=== PATIENT | female | born 1940 | race Caucasian/White ===

== ENCOUNTER → 2021-11-17 09:52 | Outpatient (BNVA) | payer MEDICARE, SELFPAY | PROVIDERS: PCP Internal Medicine; Visit Provider Psychiatry & Neurology Neurology | DX: F32.A Depression, unspecified (principal); F09 Unspecified mental disorder due to known physiological condition; H91.90 Unspecified hearing loss, unspecified ear | CPT/HCPCS: 99202 ==

== ENCOUNTER → 2022-02-07 11:24 | Outpatient (BNVA) | payer MEDICARE, SELFPAY | PROVIDERS: PCP Internal Medicine; Visit Provider Psychiatry & Neurology Neurology | DX: F09 Unspecified mental disorder due to known physiological condition (principal); F32.A Depression, unspecified; H91.90 Unspecified hearing loss, unspecified ear | CPT/HCPCS: 99212 ==

== ENCOUNTER → 2022-06-13 10:00 | Outpatient (BNVA) | payer MEDICARE, SELFPAY | PROVIDERS: PCP Internal Medicine; Visit Provider Psychiatry & Neurology Neurology | DX: G30.9 Alzheimer's disease, unspecified (principal); F02.80 Dementia in other diseases classified elsewhere, unspecified severity, without behavioral disturbance, psychotic disturbance, mood disturbance, and anxiety; H91.90 Unspecified hearing loss, unspecified ear; F32.A Depression, unspecified; Z79.899 Other long term (current) drug therapy | CPT/HCPCS: 99212 ==

== ENCOUNTER 2022-12-12 08:52 | Outpatient (AMB) | payer MEDICARE, SELFPAY ==
[2022-12-12 09:02] VITALS: BP 132/82; BMI 19.7
--- NOTE | 2022-12-12 09:02 | MHC.OFFVIS ---
Intake Vital Signs 12/12/22 09:02 Height 5 ft Weight 101 lb BMI 19.7 BP 132/82 Blood Pressure Location Rt brachial Position Sitting Intake Visit Reasons: 6mfollow up parkinson-lvm Intake Note: Patient presents for 6 month follow up Allergies No Known Allergies Allergy (Verified 12/12/22 09:04) Medication List - Last Reconciled 12/12/22 by Adela Zheng MD albuterol sulfate 90 mcg/actuation 2 inhalations inhalation Q6H PRN atenolol 25 mg PO DAILY donepezil 10 mg PO DAILY fluticasone propionate 44 mcg/actuation (Flovent HFA) 1 puff inhalation BID ipratropium-albuterol 20-100 mcg/actuation (Combivent Respimat) 1 puff inhalation QID memantine 10 mg PO BID 30 days sertraline (Zoloft) 25 mg PO DAILY HPI HPI Comments History of Present Illness Details 82y/o female comes for follow up of her cognitive disorder. Her neuropsych testing was c/w moderate dementia.she is doing OK namenda 10mg bid she is also on donepezil He rmemeory has worsened SHe has ENGINE TESTER 2 times a week 3hrs each time. she is wearing hearing aids most of the time. She is drinking 1 L of coke or less . she has urinary urgency and incontinence. Patient refuses to wear depends. SHe is accompanied by her daughter who helps with history. According to her daughter the cognitive issues started about 1 year ago. Leaves stove on, water running, car running, forgetting to pay bills. Her daughter lives with her. In the past few months its worse and she forgot how to get to her doctors office. she still drives. she drives to play cards, grocery shopping. no car accidents. she worked in retail-retired 8 years ago . She reports depression. No anxiety. She has chronic sleep issues. it is better now.Her mother had Alzheimer dementia.2 years ago she had concussion . [facility] Medical History Cholelithiasis Hearing loss Kidney injury Small bowel obstruction Surgical History Hx of cataract surgery Hx of hysterectomy Family History Father Colon cancer Alzheimer disease Mother No problems noted. Brother Mesothelioma Social History Household Members: Family Household Members Other:: daughter Alcohol intake: current Alcohol intake frequency: a few times a week Patient Tobacco Use Status: Former Tobacco user Physical Exam Vital Signs: Last Vital Signs BP 132/82 12/12/22 09:02 BMI result Body Mass Index 19.7 Const Orientation/consciousness: patient oriented x3 Neuro Other: MMSE- Date- 07/01 Place-09/28 Registration- 07/27 Spelling backwards- 07/29 recall- 05/29 3 step commands- 06/29 intersecting pentagons- missed the second writing- normal reading normal CLOCK- missed 1 number, wrong time MMSE General: patient oriented x3, tone normal, moves all extremities and no focal motor deficits Cranial nerves: Yes CN's II-XII intact bilaterally and Yes Normal facial strength present Gait exam (Neuro): Other gait observations present (mild off balance) Motor exam (neuro): 5/5 motor strength present throughout Deep tendon reflexes (DTR's): Right triceps reflex intensity grade: 2+ and Left triceps reflex intensity grade: 2+ Coordination: [id number] test normal Assessment & Plan Assessment & Plan (1) Alzheimer's dementia: Code(s): G30.9 - Alzheimer's disease, unspecified; F02.80 - Dementia in other diseases classified elsewhere, unspecified severity, without behavioral disturbance, psychotic disturbance, mood disturbance, and anxiety (2) Depression: Code(s): F32.A - Depression, unspecified Plan Neuropsych evaluation reviewed, MRI brain reviewed Aricept 10mg qd namenda 10mg bid Discussed about decreasing soda intake and increasing fluids suggested bathroom breaks. zoloft 25mg qd for appetite Medications: New sertraline (Zoloft) 25 mg PO DAILY 30 tabs 6RF Coding Level of Care Code Est Pt Level 4 (78639) Diagnoses Alzheimer's dementia G30.9; F02.80 Depression F32.A
== END 2022-12-12 09:26 | disposition home or self-care (01) ==
PROVIDERS: Visit Provider Psychiatry & Neurology Neurology
DX: G30.9 Alzheimer's disease, unspecified (principal); F02.80 Dementia in other diseases classified elsewhere, unspecified severity, without behavioral disturbance, psychotic disturbance, mood disturbance, and anxiety; F32.A Depression, unspecified
CPT/HCPCS: 99214

== ENCOUNTER → 2022-12-12 08:52 | Outpatient (BNVA) | payer MEDICARE, SELFPAY | PROVIDERS: Visit Provider Psychiatry & Neurology Neurology | DX: G30.9 Alzheimer's disease, unspecified (principal); F02.80 Dementia in other diseases classified elsewhere, unspecified severity, without behavioral disturbance, psychotic disturbance, mood disturbance, and anxiety; F32.A Depression, unspecified | CPT/HCPCS: 99212 ==

== ENCOUNTER 2023-06-18 10:23 | Outpatient (AMB) | payer MEDICARE, SELFPAY ==
[2023-06-18 10:55] VITALS: BP 102/68; PULSE 79; RESP 17; O2SAT 96; BMI 19.4
--- NOTE | 2023-06-18 10:55 | MHC.OFFVIS ---
Intake Vital Signs 06/18/23 10:55 Height 5 ft Weight 99 lb 8 oz BMI 19.4 BP 102/68 Blood Pressure Location Lt brachial Position Sitting Respiration 17 Pulse 79 Pulse Source Pulse Oximeter Pulse Oximetry (%) 96 Oxygen Delivery Method Room Air Intake Visit Reasons: 6m f/u Parkinson - LVM Intake Note: Pt presents to the office for a 6 month follow up for Alzheimer's and dementia. Predictive Maintenance Specialist Required: No Allergies No Known Allergies Allergy (Verified 06/18/23 10:55) Medication List - Last Reconciled 06/18/23 by Adela Zheng MD albuterol sulfate 90 mcg/actuation 2 inhalations inhalation Q6H PRN atenolol 25 mg PO DAILY donepezil 10 mg PO DAILY fluticasone propionate 44 mcg/actuation (Flovent HFA) 1 puff inhalation BID ipratropium-albuterol 20-100 mcg/actuation (Combivent Respimat) 1 puff inhalation QID memantine 10 mg PO BID 30 days sertraline (Zoloft) 25 mg PO DAILY HPI HPI Comments History of Present Illness Details 82y/o female comes for follow up of her cognitive disorder. Her neuropsych testing was c/w moderate dementia.she is doing OK namenda 10mg bid she is also on donepezil Her memeory has worsened . she repeats often she plays cards and has won a few times SHe has INSPECTOR CASING 2 times a week 3hrs each time. she is wearing hearing aids most of the time. She is drinking 1 L of coke or less . she has urinary urgency and incontinence. Patient refuses to wear depends. SHe is accompanied by her daughter who helps with history. According to her daughter the cognitive issues started about 18mths year ago. Leaves stove on, water running, car running, forgetting to pay bills. Her daughter lives with her. In the past few months its worse and she forgot how to get to her doctors office. she still drives. she drives to play cards, grocery shopping. no car accidents. she worked in retail-retired 8 years ago . She reports depression. No anxiety. She has chronic sleep issues. it is better now.Her mother had Alzheimer dementia.2 years ago she had concussion . [facility] Medical History Kidney injury Small bowel obstruction Cholelithiasis Hearing loss Surgical History Hx of cataract surgery Hx of hysterectomy Family History Father Colon cancer Alzheimer disease Mother No problems noted. Brother Mesothelioma Social History Household Members: Family Household Members Other:: daughter Alcohol intake: current Alcohol intake frequency: a few times a week Patient Tobacco Use Status: Former Tobacco user Physical Exam Vital Signs: Last Vital Signs Pulse 79 06/18/23 10:55 Resp 17 06/18/23 10:55 BP 102/68 06/18/23 10:55 Pulse Ox 96 06/18/23 10:55 Oxygen Delivery Method Room Air 06/18/23 10:55 BMI result Body Mass Index 19.4 Const Orientation/consciousness: patient oriented x3 Neuro Other: MMSE- Date- 07/29 Place-09/28 Registration- 07/27 Spelling backwards- 09/28 recall- 07/27 3 step commands- 05/29 intersecting pentagons- missed the second writing- normal reading normal CLOCK- missed 1 number, wrong time MMSE General: patient oriented x3, tone normal, moves all extremities and no focal motor deficits Cranial nerves: Yes CN's II-XII intact bilaterally and Yes Normal facial strength present Gait exam (Neuro): Other gait observations present (mild off balance) Motor exam (neuro): 5/5 motor strength present throughout Deep tendon reflexes (DTR's): Right triceps reflex intensity grade: 2+ and Left triceps reflex intensity grade: 2+ Coordination: [id number] test normal Assessment & Plan Assessment & Plan (1) Alzheimer's dementia: Code(s): G30.9 - Alzheimer's disease, unspecified; F02.80 - Dementia in other diseases classified elsewhere, unspecified severity, without behavioral disturbance, psychotic disturbance, mood disturbance, and anxiety (2) Depression: Code(s): F32.A - Depression, unspecified Plan Aricept 10mg qd namenda 10mg bid Discussed about decreasing soda intake and increasing fluids suggested bathroom breaks continue zoloft 25mg qd for appetite Medications: Changed From memantine 10 mg PO BID 30 days 60 tabs 6RF To memantine 10 mg PO BID 180 tabs 6RF 90 days Refilled donepezil 10 mg PO DAILY 90 tabs 6RF sertraline (Zoloft) 25 mg PO DAILY 90 tabs 6RF Coding Level of Care Code Est Pt Level 4 (22082) Diagnoses Alzheimer's dementia G30.9; F02.80 Depression F32.A
== END 2023-06-18 11:15 | disposition home or self-care (01) ==
PROVIDERS: PCP Internal Medicine; Visit Provider Psychiatry & Neurology Neurology
DX: G30.9 Alzheimer's disease, unspecified (principal); F02.80 Dementia in other diseases classified elsewhere, unspecified severity, without behavioral disturbance, psychotic disturbance, mood disturbance, and anxiety; F32.A Depression, unspecified
CPT/HCPCS: 99214

== ENCOUNTER → 2023-06-18 10:23 | Outpatient (BNVA) | payer MEDICARE, SELFPAY | PROVIDERS: PCP Internal Medicine; Visit Provider Psychiatry & Neurology Neurology | DX: G30.9 Alzheimer's disease, unspecified (principal); F02.80 Dementia in other diseases classified elsewhere, unspecified severity, without behavioral disturbance, psychotic disturbance, mood disturbance, and anxiety; F32.A Depression, unspecified; Z79.899 Other long term (current) drug therapy | CPT/HCPCS: 99212 ==

== ENCOUNTER 2023-12-18 08:42 | Outpatient (AMB) | payer MEDICARE, SELFPAY ==
[2023-12-18 08:44] VITALS: BP 114/70; BMI 19.9
--- NOTE | 2023-12-18 08:44 | A.OFFVIS_ITS ---
Vital Signs 12/18/23 08:44 Height 5 ft Weight 102 lb BMI 19.9 BP 114/70 Blood Pressure Location Rt brachial Position Sitting Intake Visit Reasons: 6 mo f/u - Confirmed Intake Note: Patient presents for 6 month follow up Allergies No Known Allergies Allergy (Verified 12/18/23 08:46) HPI Comments Details: 83y/o female comes for follow up of her cognitive disorder. Her neuropsych t esting was c/w moderate dementia.she is doing OK namenda 10mg bid she is also on donepezil.she has been the same since last visit. she plays cards and has won a few times SHe has DIRECTOR OF PROVIDER RELATIONS 2 times a week 3hrs each time. she is wearing hearing aids most of the time. She is drinking 1 L of coke or less . she has urinary urgency and incontinence. Patient refuses to wear depends. SHe is accompanied by her daughter who helps with history. According to her daughter the cognitive issues started about 18mths year ago. Leaves stove on, water running, car running, forgetting to pay bills. Her daughter lives with her. In the past few months its worse and she forgot how to get to her doctors office. she still drives. she drives to play cards, grocery shopping. no car accidents. she worked in retail-retired 8 years ago . She reports depression. No anxiety. She has chronic sleep issues. it is better now.Her mother had Alzheimer dementia.2 years ago she had concussion . [facility] Medical History Kidney injury Small bowel obstruction Cholelithiasis Hearing loss Surgical History Hx of cataract surgery Hx of hysterectomy Family History Father Colon cancer Alzheimer disease Mother No problems noted. Brother Mesothelioma Social History Household Members: Family Household Members Other:: daughter Alcohol intake: current Alcohol intake frequency: a few times a week Patient Tobacco Use Status: Former Tobacco user Physical Exam Vital Signs: Last Vital Signs BP 114/70 12/18/23 08:44 BMI result Body Mass Index 19.9 Const Orientation/consciousness: patient oriented x3 Neuro Other: MMSE- Date- 3/5 Place-09/28 Registration- 07/27 Spelling backwards- 09/28 recall- 07/27 3 step commands- 05/29 intersecting pentagons- missed the second writing- normal reading normal CLOCK- missed 1 number, wrong time MMSE General: patient oriented x3, tone normal, moves all extremities and no focal motor deficits Cranial nerves: Yes CN's II-XII intact bilaterally and Yes Normal facial strength present Gait exam (Neuro): Other gait observations present (mild off balance) Motor exam (neuro): 09/28 motor strength present throughout Deep tendon reflexes (DTR's): Right triceps reflex intensity grade: 2+ and Left triceps reflex intensity grade: 2+ Coordination: [id number] test normal Assessment & Plan Assessment & Plan (1) Alzheimer's dementia: Code(s): G30.9 - Alzheimer's disease, unspecified; F02.80 - Dementia in other diseases classified elsewhere, unspecified severity, without behavioral disturbance, psychotic disturbance, mood disturbance, and anxiety Category: Medical (2) Depression: Code(s): F32.A - Depression, unspecified Category: Medical Plan Aricept 10mg qd namenda 10mg bid Discussed about decreasing soda intake and increasing fluids- discussed about increasing protien suggested bathroom breaks - she wears depends now continue zoloft 25mg qd for appetite Coding Level of Care Code Est Pt Level 4 (87941) Diagnoses Alzheimer's dementia G30.9; F02.80 Depression F32.A
== END 2023-12-18 09:22 | disposition home or self-care (01) ==
PROVIDERS: PCP Internal Medicine; Visit Provider Psychiatry & Neurology Neurology
DX: G30.9 Alzheimer's disease, unspecified (principal); F02.80 Dementia in other diseases classified elsewhere, unspecified severity, without behavioral disturbance, psychotic disturbance, mood disturbance, and anxiety; F32.A Depression, unspecified
CPT/HCPCS: 99214

== ENCOUNTER → 2023-12-18 08:42 | Outpatient (BNVA) | payer MEDICARE, SELFPAY | PROVIDERS: PCP Internal Medicine; Visit Provider Psychiatry & Neurology Neurology | DX: G30.9 Alzheimer's disease, unspecified (principal); F32.A Depression, unspecified; F02.80 Dementia in other diseases classified elsewhere, unspecified severity, without behavioral disturbance, psychotic disturbance, mood disturbance, and anxiety | CPT/HCPCS: 99212 ==

== ENCOUNTER 2024-12-16 15:18 | Outpatient (AMB) | payer MEDICARE, SELFPAY ==
[2024-12-16 15:12] VITALS: BP 130/82; PULSE 74; O2SAT 97; BMI 22.5
--- NOTE | 2024-12-16 15:12 | MHC.OFFVIS ---
Vital Signs 12/16/24 15:12 Height 5 ft Weight 115 lb BMI 22.5 BP 130/82 Blood Pressure Location Rt brachial Position Sitting Pulse 74 Pulse Source Pulse Oximeter Pulse Oximetry (%) 97 Oxygen Delivery Method Room Air Intake Visit Reasons: Follow up It Service Manager Required: No Accompanied by: Daughter Allergies No Known Allergies Allergy (Verified 12/16/24 15:33) Medication List - Last Reconciled 12/16/24 by Adela Zheng MD atenolol 25 mg PO DAILY fluticasone propionate 44 mcg/actuation (Flovent HFA) 1 puff inhalation BID memantine 10 mg PO BID 90 days sertraline (Zoloft) 25 mg PO DAILY HPI Comments Details: 84y/o female comes for follow up of her cognitive disorder. Her neuropsych testing was c/w moderate dementia.she is doing OK namenda 10mg bid she is also on Donepezil.she has been the same since last visit. she moved to [facility] - she is doing better- walking more, socially better, eating better.she is exercising and walking everyday.she sleeps better now. History from last visit-she plays cards and has won a few times SHe has EXPORT TRAFFIC DEPARTMENT MANAGER 2 times a week 3hrs each time. she is wearing hearing aids most of the time. She is drinking 1 L of coke or less . she has urinary urgency and incontinence. Patient refuses to wear depends. SHe is accompanied by her daughter who helps with history. According to her daughter the cognitive issues started about 18mths year ago. Leaves stove on, water running, car running, forgetting to pay bills. Her daughter lives with her. In the past few months its worse and she forgot how to get to her doctors office. she still drives. she drives to play cards, grocery shopping. no car accidents. she worked in retail-retired 8 years ago . She reports depression. No anxiety. She has chronic sleep issues. it is better now.Her mother had Alzheimer dementia. . [facility] Medical History Kidney injury Small bowel obstruction Cholelithiasis Hearing loss Surgical History Hx of cataract surgery Hx of hysterectomy Family History Father Colon cancer Alzheimer disease Mother No problems noted. Brother Mesothelioma Social History Household Members: Family Household Members Other:: daughter Alcohol intake: current Alcohol intake frequency: a few times a week Patient Tobacco Use Status: Former Tobacco user Physical Exam Vital Signs: Last Vital Signs Pulse 74 12/16/24 15:12 BP 130/82 12/16/24 15:12 Pulse Ox 97 12/16/24 15:12 Oxygen Delivery Method Room Air 12/16/24 15:12 BMI result Body Mass Index 22.5 Const Orientation/consciousness: patient oriented x3 Neuro General: patient oriented x3, tone normal, moves all extremities and no focal motor deficits Cranial nerves: Yes CN's II-XII intact bilaterally and Yes Normal facial strength present Gait exam (Neuro): Other gait observations present (mild off balance) Motor exam (neuro): 5/5 motor strength present throughout Coordination: [id number] test normal Orientation What is the (year) (season) (date) (day) (month)?: year, season, date, day and month Where are we (state) (county) (town or city) (hospital) (floor)?: state, county, town or city, hospital/clinic and floor Registration Name of 3 unrelated objects clearly and slowly, then ask patient to repeat all 3 of them. (1st repeat determines score. Make sure they can repeat all three): object 1, object 2 and object 3 Attention & Calculation (CHOOSE ONE) Spell WORLD backwards (DLROW): 5 letters Recall Ask patient to repeat the 3 items from question #3.: object 1 Language Show patient a wristwatch & ask what it is. Repeat for pencil.: watch and pencil Ask the patient to repeat the phrase 'No ifs, ands, or buts' after you.: correct Ask the patient to 'take a piece of paper with their right hand' 'fold paper in half' 'place paper on floor': take paper in right hand, fold paper in half and place paper on floor Print the sentence 'CLOSE YOUR EYES' on a piece. If patient actually closes eyes then score.: followed written direction Give patient a blank piece of paper & ask to write a sentence. Score if it contains a noun & verb.: sentence contains subject and verb Score Score: 27 Assessment & Plan Assessment & Plan (1) Alzheimer's dementia: Code(s): G30.9 - Alzheimer's disease, unspecified; F02.80 - Dementia in other diseases classified elsewhere, unspecified severity, without behavioral disturbance, psychotic disturbance, mood disturbance, and anxiety Category: Medical Qualifiers: Alzheimer's disease onset: late onset Dementia severity: moderate Dementia behavioral or psychological symptom: without behavioral, psychotic, or mood disturbance or anxiety Qualified Code(s): G30.1 - Alzheimer's disease with late onset; F02.B0 - Dementia in other diseases classified elsewhere, moderate, without behavioral disturbance, psychotic disturbance, mood disturbance, and anxiety Plan namenda 10mg bid Discussed about decreasing soda intake and increasing fluids- discussed about increasing protien suggested bathroom breaks - she wears depends now continue zoloft 25mg qd for appetite Coding Level of Care Code Est Pt Level 4 (72309) Diagnoses Moderate late onset Alzheimer's dementia without behavioral disturbance, psychotic disturbance, mood disturbance, or anxiety G30.1; F02.B0 Alzheimer's disease onset: late onset Dementia severity: moderate Dementia behavioral or psychological symptom: without behavioral, psychotic, or mood disturbance or anxiety
--- OUTSIDE RECORDS SUMMARY | 2024-12-16 15:42 | XMS_ITS | Clinical Summary ---
Author Organization [facility] Address [address] [place] [address] Care Team Providers Care Polishing Machine Tender Name Role Phone Kary Thibodeaux MD Primary Care Prov ider Allergies No known active allergies Medications memantine (NAMENDA) 10 mg tablet Take 1 Tablet by mouth 2 Times Daily. 2 Active sertraline (ZOLOFT) 25 mg tablet Take 1 Tablet by mouth daily. 3 Active Lacto 41-B.animalis,bif id-FOS (Ultimate Probiotic-10) 111 mg (25 billion cell) capsule Take by mouth. Active multivit-min/iron /folic acid/K (ADULTS MULTIVITAMIN ORAL) Take by mouth. Active atenoloL (TENORMIN) 25 mg tablet TAKE 1 TABLET BY MOUTH EVERY DAY 90 tablet 1 5 Active loperamide (IMODIUM) 2 mg capsule TAKE 1 CAPSULE BY MOUTH EVERY 3 HOURS NEEDED FOR LOOSE STOOL 5 Active cetirizine (ZyrTEC) 10 mg tablet TAKE 1 TABLET BY MOUTH EVERY DAY 90 tablet Active Active Problems Problem Noted Date Diagnosed Date Acute kidney injury ([facility] V24) 04/27/2024 Diarrhea 04/27/2024 Hard of hearing 04/27/2024 Sepsis ([facility] V24, [facility] V28) 04/27/2024 Moderate dementia without be havioral disturbance, psychotic disturbance, mood disturbance, or anxiety ([facility] V24, [facility] V28) 01/14/2023 Assessment & Plan (09/29/2024 5:24 PM EDT): Weight loss, unintentional 01/14/2023 Pulmonary emphysema ([facility] V24, [facility] V28) 0 12/03/2022 COVID-19 virus infection 02/09/2022 Overview (04/27/2024): Jan 2022 Cholelithiasis 06/08/2020 Osteoporosis 01/08/2013 Overview (04/27/2024): Bone density 12/2012. PTH borderline elevated. Pt declines osteoporosis medication Increased urinary frequency 11/02/2010 Urge incontinence of urine 11/02/2010 Hypercholesterolemia 09/08/2009 Hypertension 09/08/2009 Assessment & Plan (09/29/2024 5:24 PM EDT): Hearing loss, sensorineural 11/25/2008 Encounters Date Type Department Care Team Description 11/11/2024 Billing Patient Not Present [address] [phone] Radha Berg MA Urinary tract infection without hematuria, site unspecified (Primary Dx); Unspecified Escherichia coli (E. coli) as the cause of diseases classified elsewhere; Bacteremia; Other specified bacterial agents as the cause of diseases classified elsewhere; Contusion of scalp, subsequent encounter; Dementia without behavioral disturbance, psychotic disturbance, mood disturbance, or anxiety, unspecified dementia severity, unspecified dementia type ([facility] V24, [facility] V28) 11/05/2024 Telephone Adult [facility] [address] [place] [phone] Kary Bojorquez MD Forms/questionnaires ([facility] 10/23/2024-12/21/2024/) 10/30/2024 1:30 PM EDT Office Visit [address] [phone] Kary Bojorquez MD Primary hypertension (Primary Dx); 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 Completed and Dr. Reyna signed. Please review, thank so much.) 10/26/[address] [phone] Kary Bojorquez MD Vaginitis/Bacterial Vaginosis 10/21/[address] [phone] Kary Bojorquez MD Mychart appt (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, psychotic disturbance, mood disturbance, or anxiety, unspecified timing of dementia onset ([facility] V24, [facility] V28) 09/25/2024 Telephone Adult [address] [phone] Kary Bojorquez MD Medication Problem from Last 3 Months Immunizations Name Administration Dates Next Due Influenza Quadravalent, 0.5m l (Fluzone High-dose) 65yo and older 02/02/2021 Influenza trivalent, 0.5mL ( Fluad) 65yo and older 02/26/2024,03/12/2022,04/25/2020,2018,03/10/2017 Influenza trivalent, 0.5mL ( Fluzone High-dose) 65yo and older 03/12/2022,04/25/2020,02/10/2019,2017,03/10/2017 Influenza trivalent, 0.5mL, preservative free (Fluarix; FluLaval; Fluzone) ages 6mo and older (Afluria) 3 years and older 05/22/2016 Influenza trivalent, with preservative (Fluzone; Afluria) 6mo and older 05/22/2016 Pneumococcal conjugate 13 va lent (Prevnar 13, PCV13) 2mo and older 08/17/2014 RSV, bivalent, protein subun it RSVpreF, 0.5mL, Preservative Free (Arexvy) 60yo and older 03/30/2024 Td Tetanus diptheria (Tdvax) 7yo and older 05/27/2006 Tdap Tetanus diptheria acell ular pertussis (Boostrix; Adacel) 7yo and older 10/19/2014 Surgical History Surgery Date Site/Laterality Comments HYSTERECTOMY 1970s PROCEDURE: HISTORICAL VAGINAL HYSTERECTOMY W/O BSO; COMMENT: a wedge of an ovary remains TONSILLECTOMY PROCEDURE: HISTORICAL TONSILLECTOMY OTHER SURGICAL HISTORY age 29 PROCEDURE: AR VAG HYST 250 GM/< W/RMVL TUBE&/OVARY; COMMENT: TVH LSO for menorrhagia COLONOSCOPY 11/30/13 PROCEDURE: HISTORICAL COLONOSCOPY; COMMENT: tics; would not repeat Medical History Medical History Date Comments Sepsis (CMS/HCC V24, CMS/HCC V28) DX:Sepsis (HCC) Diarrhea DX:Diarrhea Acute kidney injury (CMS/HCC V24) DX:Acute kidney injury (HCC) Hard of hearing DX:Hard of heari ng Family History Medical History Relation Name Comments Other cancer Father pancreas Breast cancer Other p cousins x2 Relation Name Status Comments Brother Alive Father pancreatic canc er Maternal Grandfather Maternal Grandmother Mother alzyeimiemedavid's Other p cousins x2 Paternal Grandfather Paternal Grandmother Sister Alive Social History Tobacco Use Types Packs/Day Years Used Date Smoking Tobacco: Former Cigarettes Q uit: 05/27/1993 Smokeless Tobacco: Never Tobacco Cessation:Counseling Given: Not Answered Alcohol Use Standard Drinks/Week Comments Yes 0 (1 standard drink = 0.6 oz pur e alcohol) Housing Instability Answer Date Recorde d Are you worried that in the next 2 months you may not have stable housing? No 10/21/2024 Food Access & Nutrition Answer Date Rec orded Do you have access to a vari ety of food including fruits and vegetables? Yes 10/21/2024 Access to Healthcare Answer Date Record ed Within the last 3 months, ho jamil many times did you visit the emergency department for your medical care? 1 10/21/2024 Health Literacy Answer Date Recorded How often do you need to hav e someone help you when you read instructions, pamphlets, or other written material from your doctor or pharmacy? Always 10/21/2024 Caregiver: How often do you need to have someone help you when you read instructions, pamphlets, or other written material from your doctor or pharmacy? Not on file 10/21/2024 Financial Risk Answer Date Recorded How hard is it for you to pa y for the very basics like food, housing, medical care, and air conditioning / heating? Not very hard 10/21/2024 Transportation Answer Date Recorded Has the lack of transportati on kept you from meetings, work, or from getting things needed for daily living? No Has the lack of transportati on kept you from medical appointments or from getting medications? No 10/21/2024 Social Isolation Answer Date Recorded How often do you feel lonely or isolated from th ose around you? Rarely 10/21/2024 Food Risk Answer Date Recorded Within the past 12 months we worried whether our food would run out before we got money to buy more. Never true 10/21/2024 Within the past 12 months th e food we bought just didn't last and we didn't have money to get more. Never true 10/21/2024 Dependent Care Answer Date Recorded Do you need help finding or paying for care for your loved ones. For example, child welfare assistant or elderly care for an older adult? Yes 10/21/2024 Education Answer Date Recorded Do you think completing more education or training, like finishing a GED, going to college, or learning a trade, would be helpful for you? No 10/21/2024 Employment and Income Answer Date Recor ded During the last four weeks, have you been actively looking for work? No 10/21/2024 Living Situation Answer Date Recorded What is your living situation? 0 10/21/2024 Comments No Sex and Gender Information Value Date Recorded Sex Assigned at Female 10/21/2024 8:59 AM EDT Legal Sex Female 4:12 PM EDT Gender Identity Female 10/21/2024 8:59 AM EDT Sexual Orientation Not on file Obstetrics History Last Filed Vital Signs Vital Sign Reading Time Taken Comments Blood Pressure 129/75 10/30/2024 1:53 PM EDT Pulse 84 10/30/2024 1:53 PM EDT Temperature 36.6 C (97.8 F) 10/30/2024 1:53 PM EDT Respiratory Rate 16 09/29/2024 4:02 PM EDT Oxygen Saturation - - Inhaled Oxygen Concentration - - Weight 51.3 kg (113 lb) 10/30/2024 1:53 PM EDT Height 150 cm (4' 11.06 ) 09/29/2024 4:02 PM EDT Body Mass Index 22.78 09/29/2024 4:02 PM EDT Plan of Treatment Upcoming Encounters Date Type Department Care Team (Late st Contact Info) Description 01/04/2025 8:30 AM EDT Office Visit Adult Medicine - [place] [address] [place] [phone] Kary Thibodeaux MD [address] [place] [address] Health Maintenance Due Date Last Done Comments Zoster Vaccines (1 of 2) 08/07/1991 Pneumococcal Vaccine: 50+ Years (2 of 2 - PPSV23) 10/12/2014 08/17/2014 Hypertension/CHF/CAD Annual BMP Blood Test 06/04/2024 06/04/2023 COVID-19 Vaccine ( season) 2024 03/30/2024, 05/04/2021, 08/24/2020, Additional history exists DTaP,Tdap,and Td Vaccines (3 - Td or Tdap) 10/19/2024 10/19/2014, 05/27/2006 Influenza Vaccine (#1) 2025 , 03/12/2022, 03/12/2022, Additional history exists Cholesterol Screening (Lipid Panel) 04/25/2025 04/25/2020 Medicare Annual Wellness Visit 09/29/2025 09/29/2024 Social Influencers of Health Screening 10/21/2025 10/21/2024 Falls Risk Assessment 10/23/2025 10/23/2024, 024 Osteoporosis Screening (Bone Density Screening) 02/05/2029 02/05/2019, 01/29/2017 RSV Immunization Adult Patients Completed 03/30/2024 Depression Screening Completed 10/21/2024, 02/26/20 24 HIB Vaccines Aged Out No longer eligi ble based on patient's age to complete this topic HPV Vaccines Aged Out No longer eligi ble based on patient's age to complete this topic Hepatitis A Vaccines Aged Out No long er eligible based on patient's age to complete this topic Hepatitis B Vaccines Aged Out No long er eligible based on patient's age to complete this topic IPV Vaccines Aged Out No longer eligi ble based on patient's age to complete this topic MMR Vaccines Aged Out No longer eligi ble based on patient's age to complete this topic Meningococcal ACWY Vaccine Aged Out N o longer eligible based on patient's age to complete this topic Meningococcal B Vaccine Aged Out No l onger eligible based on patient's age to complete this topic RSV Immunization Patients Under 20 months Aged Out No longer eligible based on patient's age to complete this topic Varicella Vaccines Aged Out No longer eligible based on patient's age to complete this topic Procedures Procedure Name Priority Date/Time Associated Diagnosis Comments DEPRESSION SCREENING Routine 02/26/2024 FALLS RISK ASSESSMENT Routine 02/26/2024 ANNUAL BMP BLOOD TEST Routine 06/04/2023 LIPID PANEL Routine 04/25/2020 DXA BONE DENSITY STUDY 1+ SITS AXIAL SKEL Routine 02/05/2019 10:20 AM EDT Other osteoporosis without current pathological fracture from Last 3 Months or Most Recently Relevant to Health Maintenance Results * Falls Risk Assessment (02/26/2024) [facility] Falls Risk Assessment Abstracted [facility] Provider HEALTH MAINTENANCE Final Result * Depression Screening (02/26/2024) [facility] Depression Screening Abstracted [facility] Provider HEALTH MAINTENANCE Final Result * Annual BMP Blood Test (06/04/2023) [facility] Annual BMP Blood Test Abstracted [facility] Provider HEALTH MAINTENANCE Final Result * (ABNORMAL) Lipid panel (04/25/2020) [facility] LDL/HDL Ratio 6(A) 0 - 4 Triglycerides 423(A) 0 - 150 mg/dL Cholesterol 301(A) 0 - 200 mg/dL HDL 52 >=40 mg/dL LDL Cholesterol 165(A) 0 - 100 mg/dL Blood Venous blood specimen / Unknown [facility] Provider LAB BLOOD ORDERABLES Nereida l Result * DXA BONE DENSITY STUDY 1+ SITS AXIAL SKEL (02/05/2019 10:20 AM EDT) Anatomical Region Laterality Modality Bone Densitometr y 11/04/2018 8:53 AM EDT Narrative 02/05/2019 12:45 PM EDT BONE DENSITY Lumbar Spine T-score is -0.3 (SD relative to 20-29 y/o adult) Z-score is +2.3 (SD relative to age matched peers) This is normal by criteria defined by the WHO. Left Hip T-score is -2.9 Z-score is -0.7 This is consistent with osteoporosis by criteria defined by the WHO. Comparison exam(s): significant increase in bone density of lumbar spine when compared to most recent bone density examination Confidence level is +/-95%. Impression: Based on the World Health Organization criteria, Gus Garcia should be classified as having osteoporosis. The [facility] Department of Internal Medicine recommends using National Osteoporosis Foundation (NOF) guidelines in treatment decisions related to osteoporosis. NOF guidelines suggest considering treatment for postmenopausal women and men aged 50 or older presenting with the following: History of hip or vertebral fracture. T-score less than or equal to -2.5 (DXA) at the femoral neck, total hip, or spine, after appropriate evaluation to exclude secondary causes. Low bone mass (T-score between -1.0 and -2.5 at the femoral neck or spine) AND a 10-year probability of a hip fracture greater than or equal to 3% OR a 10-year probability of a major osteoporosis-related fracture greater than or equal to 20% based on the [place]-adapted WHO algorithm Please note that all treatment decisions require clinical judgment and consideration of individual patient factors, including patient preferences, co-morbidities, previous drug use, risk factors not captured in the FRAX model (e.g., frailty, falls, vitamin D deficiency, increased bone turnover, interval significant decline in bone density) and possible under- or over-estimation of fracture risk by FRAX. Procedure Note Jovita Dee MD - 05/15/2022 BONE DENSITY Lumbar Spine T-score is -0.3 (SD relative to 20-29 y/o adult) Z-score is +2.3 (SD relative to age matched peers) This is normal by criteria defined by the WHO. Left Hip T-score is -2.9 Z-score is -0.7 This is consistent with osteoporosis by criteria defined by the WHO. Comparison exam(s): significant increase in bone density of lumbar spinewhen compared to most recent bone density examination Confidence level is +/-95%. Impression: Based on the World Health Organization criteria, Gus Garcia should beclassified as having osteoporosis. [facility] Department of Internal Medicine recommendsusing National Osteoporosis Foundation (NOF) guidelines in treatmentdecisions related to osteoporosis. NOF guidelines suggest consideringtreatment for postmenopausal women and men aged 50 or older presentingwith the following: History of hip or vertebral fracture. T-score less than or equal to -2.5 (DXA) at the femoral neck, total hip,or spine, after appropriate evaluation to exclude secondary causes. Low bone mass (T-score between -1.0 and -2.5 at the femoral neck or spine)AND a 10-year probability of a hip fracture greater than or equal to 3% ORa 10-year probability of a major osteoporosis-related fracture greaterthan or equal to 20% based on the [place]-adapted WHO algorithm Please note that all treatment decisions require clinical judgment andconsideration of individual patient factors, including patientpreferences, co-morbidities, previous drug use, risk factors not capturedin the FRAX model (e.g., frailty, falls, vitamin D deficiency, increasedbone turnover, interval significant decline in bone density) and possibleunder- or over-estimation of fracture risk by FRAX. Grace Dalal MD IMG DXA PROCEDURES Final Result from Last 3 Months or Most Recently Relevant to Health Maintenance Insurance MEDICARE [facility] Advance Directives * No CPR/Do Not Intubate (Latest Code Status on File) Date Activated Date Inactivated Comments 09/29/2024 5:15 PM This code statu s was ascertained in the following way: Code status discussion: discussion with patient To update the patient's code status, place a code status order. Do not modify or discontinue any currently active code status orders. Healthcare Agents on File Name Relationship Healthcare Agent [facility] Roxana Nallely Lawrence Daughter Health Care Agent Gabriel Lawrence Son [employer] [facility] are Agent Care Teams Polishing Machine Tender Relationship Specialty Start Date End Date Kary Thibodeaux MD [address] [place] [id number] PCP - General Internal Medicine 11/18/20
--- OUTSIDE RECORDS SUMMARY | 2024-12-16 15:42 | XMS_ITS ---
Author Name [facility] Organization Unknown Care Team Organization Name Specialty Phone Email Start Date End Da te [facility] JENIFER OBANDO Primary Care 11/02/2022 01/13/2024 [facility] LEISA MARTIN Primary Care 04/03/20222023
--- OUTSIDE RECORDS SUMMARY | 2024-12-20 20:00 | XMS_ITS | Clinical Summary ---
Author Organization Unknown Care Team Providers Care Maintenance Analyst Name Role Phone LASHELL ANSARI MD, TEODORO Unavailable U harley BLOOM PT, CHUCKIE Unavailable Unavailable SHANKAR H[employer]EL [employer]INO FLOORPERSON, [facility] Unavailable Unavailable Payers Payer Name Policy Type Policy Number Effective Date Expira tion Date MEDICARE.NGS.PDGM [id number] Problems Condition Name Condition Details Condition Category Status Onset Date Resolution Date Last Treatment Date Treating Clinician Comments URINARY TRACT INFECTION, SITE NOT SPECIFIED Active 10-20 00:00: 00 UNSP ESCHERICHIA COLI THE CAUSE OF DISEASES CLASSD ELSWHR Active 10-20 00:00: 00 BACTEREMIA Active 10-20 00:00: 00 OTH BACTERIAL AGENTS THE CAUSE OF DISEASES CLASSD ELSWHR Active 10-20 00:00: 00 CONTUSION OF SCALP, SUBSEQUENT ENCOUNTER Active 10-20 00:00: 00 UNSP DEMENTIA, UNSP SEVERITY, WITHOUT BEH/PSYCH/MO OD/ANX Active 10-20 00:00: 00 ESSENTIAL (PRIMARY) HYPERTENSION Active 10-20 00:00: 00 CHRONIC OBSTRUCTIVE PULMONARY DISEASE, UNSPECIFIED Active 10-20 00:00: 00 CHRONIC SINUSITIS, UNSPECIFIED Active 10-20 00:00: 00 OTHER CONSTIPATION Active 10-20 00:00: 00 HISTORY OF FALLING Active 10-20 00:00: 00 Allergies, Adverse Reactions, Alerts Allergy Name Allergy Type Status Severity Reaction(s) Onset Date Inactive Date Treating Clinician Comments NO KNOWN ALLERGIES Propensity to adverse reactions Active 10-26 00:12: 40 Medications Ordered Medication Name Filled Medication Name Start Date Stop Date Current Medication? Ordering Clinician Indication Dosage Frequency Signature (SIG) Comments Components levofloxaci n 750 mg tablet 10-20 00:00: 00 Yes [id number] UTI 1 tablet DAILY 1 tablet DAILY (route: oral) Med Classific ation: Anti-Infe ctive Agents loperamide 2 mg capsule 10-20 00:00: 00 Yes [id number] DIARRHEA 1 capsule EVERY 3 HOURS 1 capsule EVERY 3 HOURS (route: oral) Med Classific ation: Gastroint estinal Therapy Agents atenolol 25 mg tablet 10-17 00:00: 00 Yes [id number] CARDIOVASCU LAR 1 tablet EVERY DAY 1 tablet EVERY DAY (route: oral) Med Classific ation: Cardiovas cular Therapy Agents memantine 10 mg tablet 10-17 00:00: 00 Yes [id number] COGNITIVE 1 tablet TWICE A DAY 1 tablet TWICE A DAY (route: oral) Med Classific ation: Cognitive Disorder Therapy azelastine 137 mcg (0.1 %) nasal spray 09-29 00:00: 00 10-24 23:59 :00 No [id number] RESPIRATORY 1 spray 2 TIMES A DAY DIRECTED 1 spray 2 TIMES A DAY DIRECTED (route: nasal) Med Classific ation: Respirato ry Therapy Agents sulfamethox azole 800 mg-trimetho prim 160 mg tablet 09-29 00:00: 00 10-24 23:59 :00 No [id number] ANTI-INFECT ION 1 tablet TWICE A DAY FOR 7 DAYS 1 tablet TWICE A DAY FOR 7 DAYS (route: oral) Med Classific ation: Anti-Infe ctive Agents Probiotic Digestive Support (Lacto,Bifi do) 1.5 billion cell capsule 10-20 00:00: 00 Yes [id number] SUPPLIMENT 1 capsule DAILY 1 capsule DAILY (route: oral) Med Classific ation: Gastroint estinal Therapy Agents Vital Signs Vital Name Observation Time Observation Value Commen ts Temperature 2024-12-01 13:38:00.000 97.1 [degF] Temperature 2024-11-16 12:19:00.000 97.8 [degF] Temperature 2024-11-10 14:07:00.000 97.1 [degF] Temperature 2024-11-05 12:22:00.000 97.1 [degF] Temperature 2024-10-30 11:44:00.000 97.1 [degF] Temperature 2024-10-28 10:16:00.000 97.3 [degF] Temperature 2024-10-25 22:40:00.000 97.9 [degF] BMI (%) 2024-10-25 22:53:56.000 23 kg/m2 Height 2024-10-25 22:53:44.000 60 [in_us] Pulse 2024-12-01 13:38:00.000 74 /min Pulse 2024-11-16 12:19:00.000 84 /min Pulse 2024-11-10 14:07:00.000 80 /min Pulse 2024-11-05 12:22:00.000 82 /min Pulse 2024-10-30 11:44:00.000 60 /min Pulse 2024-10-28 10:16:00.000 86 /min Pulse 2024-10-25 22:40:00.000 72 /min O2 Saturation (%) 2024-12-01 13:38:00.000 98 % O2 Saturation (%) 2024-11-16 12:19:00.000 97 % O2 Saturation (%) 2024-11-10 14:07:00.000 96 % O2 Saturation (%) 2024-11-05 12:22:00.000 96 % O2 Saturation (%) 2024-10-30 11:44:00.000 96 % O2 Saturation (%) 2024-10-28 10:16:00.000 96 % O2 Saturation (%) 2024-10-25 22:40:00.000 93 % Respirations 2024-12-01 13:38:00.000 16 /min Respirations 2024-11-16 12:19:00.000 16 /min Respirations 2024-11-10 14:07:00.000 16 /min Respirations 2024-11-05 12:22:00.000 18 /min Respirations 2024-10-30 11:44:00.000 16 /min Respirations 2024-10-28 10:16:00.000 16 /min Respirations 2024-10-25 22:40:00.000 18 /min Weight (lbs) 2024-10-25 22:53:56.000 120 [lb_av] Systolic Blood Pressure 2024-12-01 13:38:00.000 122 mm [Hg] Systolic Blood Pressure 2024-11-16 12:19:00.000 120 mm [Hg] Systolic Blood Pressure 2024-11-10 14:07:00.000 130 mm [Hg] Systolic Blood Pressure 2024-11-05 12:22:00.000 108 mm [Hg] Systolic Blood Pressure 2024-10-30 11:44:00.000 137 mm [Hg] Systolic Blood Pressure 2024-10-28 10:16:00.000 120 mm [Hg] Systolic Blood Pressure 2024-10-25 22:40:00.000 136 mm [Hg] Diastolic Blood Pressure 2024-12-01 13:38:00.000 60 mm [Hg] Diastolic Blood Pressure 2024-11-16 12:19:00.000 80 mm [Hg] Diastolic Blood Pressure 2024-11-10 14:07:00.000 80 mm [Hg] Diastolic Blood Pressure 2024-11-05 12:22:00.000 70 mm [Hg] Diastolic Blood Pressure 2024-10-30 11:44:00.000 80 mm [Hg] Diastolic Blood Pressure 2024-10-28 10:16:00.000 60 mm [Hg] Diastolic Blood Pressure 2024-10-25 22:40:00.000 64 mm [Hg] Plan of Treatment Planned Activity Planned Date Details Comments Future Scheduled Test PT/[employer] FLOORPERSON TO PROVIDE GAIT TRAINING FOR IMPROVED MOBILITY AND /OR TO NORMALIZE GAIT PATTERN [code = PT/H[employer] FLOORPERSON TO PROVIDE GAIT TRAINING FOR IMPROVED MOBILITY AND /OR TO NORMALIZE GAIT PATTERN] Future Scheduled Test THERAPEUTI C EXERCISES AND ESTABLISHING A HOME EXERCISE PROGRAM (PT/H[employer]EL CASINO FLOORPERSON) [code = THERAPEUTIC EXERCISES AND ESTABLISHING A HOME EXERCISE PROGRAM (PT/H[employer]EL CASINO FLOORPERSON)] Future Scheduled Test PT/H[employer] FLOORPERSON TO IDENTIFY FALL RISK FACTORS; EDUCATE THE PATIENT/CAREGIVER ON WAYS TO REDUCE FALL RISK FACTORS AND ESTABLISH HOME EXERCISE PROGRAM TO MINIMIZE FALL RISK. MAY TEACH THE PATIENT FLOOR RECOVERY WHEN CLINICALLY APPROPRIATE [code = PT/[employer] FLOORPERSON TO IDENTIFY FALL RISK FACTORS; EDUCATE THE PATIENT/CAREGIVER ON WAYS TO REDUCE FALL RISK FACTORS AND ESTABLISH HOME EXERCISE PROGRAM TO MINIMIZE FALL RISK. MAY TEACH THE PATIENT FLOOR RECOVERY WHEN CLINICALLY APPROPRIATE] Future Scheduled Test SIT TO/FRO M STAND TRANSFERS (PT/H[employer]EL CASINO FLOORPERSON) [code = SIT TO/FROM STAND TRANSFERS (PT/HOTEL CASINO FLOORPERSON)] Future Scheduled Test FLOOR EMORY VERY (PT/H[employer]EL CASINO FLOORPERSON) [code = FLOOR RECOVERY (PT/H[employer]EL CASINO FLOORPERSON)] Future Scheduled Test PT / H[employer] FLOORPERSON T O MONITOR AND EDUCATE ON OXYGEN SATURATION DURING ADLS/IADLS, NOTIFY PHYSICIAN AND/OR THE RN CLINICAL BOX FABRICATOR FOR PHYSICIAN NOTIFICATION AND IF O2 SATS BELOW PHYSICIAN ORDERED PARAMETERS AFTER 10 MIN OF REST [code = PT / H[employer] FLOORPERSON TO MONITOR AND EDUCATE ON OXYGEN SATURATION DURING ADLS/IADLS, NOTIFY PHYSICIAN AND/OR THE RN CLINICAL BOX FABRICATOR FOR PHYSICIAN NOTIFICATION AND IF O2 SATS BELOW PHYSICIAN ORDERED PARAMETERS AFTER 10 MIN OF REST] Future Scheduled Test PT / H[employer]EL CASINO FLOORPERSON M AY EDUCATE ON PAIN MANAGEMENT CLINICALLY INDICATED, INCLUDING NON-PHARMACOLOGICAL PAIN REDUCTION TECHNIQUES AND USE OF CRYOTHERAPY OR HEAT UP TO 20 MIN AT A TIME FOR PAIN MANAGEMENT 3-5 TIMES PER DAY TO LIW BACK [code = PT / H[employer]INO FLOORPERSON MAY EDUCATE ON PAIN MANAGEMENT CLINICALLY INDICATED, INCLUDING NON-PHARMACOLOGICAL PAIN REDUCTION TECHNIQUES AND USE OF CRYOTHERAPY OR HEAT UP TO 20 MIN AT A TIME FOR PAIN MANAGEMENT 3-5 TIMES PER DAY TO LIW BACK] Future Scheduled Test AGENCY MAY PERFORM A RESUMPTION OF CARE VISIT FOLLOWING ANY HOSPITAL ADMISSION. PT TO EVALUATE, OBSERVE / ASSESS, AND MONITOR, H[employer] FLOORPERSON TO OBSERVE AND MONITOR, PROVIDE SKILLED THERAPEUTIC INTERVENTION, ACTIVITY, EDUCATION, AND TRAINING TO ADDRESS; [code = AGENCY MAY PERFORM A RESUMPTION OF CARE VISIT FOLLOWING ANY HOSPITAL ADMISSION. PT TO EVALUATE, OBSERVE / ASSESS, AND MONITOR, [employer] FLOORPERSON TO OBSERVE AND MONITOR, PROVIDE SKILLED THERAPEUTIC INTERVENTION, ACTIVITY, EDUCATION, AND TRAINING TO ADDRESS;] Future Scheduled Test PT / [employer] FLOORPERSON T O MONITOR FOR SIGNS AND SYMPTOMS OF UTI AND EDUCATE PATIENT/CAREGIVER TO MINIMIZE RISK OF DEVELOPING A UTI. [code = PT / H[employer] FLOORPERSON TO MONITOR FOR SIGNS AND SYMPTOMS OF UTI AND EDUCATE PATIENT/CAREGIVER TO MINIMIZE RISK OF DEVELOPING A UTI.] Goal Patient Goal - T O BE INDEPENDENT POSSIBLE WITH WALKING ... Goal Provider Goal - PT LTG: PATIENT WILL DEMONSTRATE REDUCED GAIT DEVIATIONS TO REDUCE THE RISK FOR FALLING AND MINIMIZE STRAIN ON KNEES/HIPS AND BACK EVIDENCED BY IMPROVED ABBY, ROTATION, AND STEP LENGTH WALKING INDEPENDENTLY IN ORDER TO ACCESS ALL AREAS OF HOME AND TRANSPORTATION WITHIN 9 WEEKS Goal Provider Goal - PT LTG: PATIENT WILL DEMONSTRATE INCREASED STRENGTH OF LE FROM 3+/5 TO 4+/5 WITHIN 9 WEEKS IN ORDER TO MAXIMIZE INDEPENDENCE IN NEW RESIDENTIAL SETTING. Goal Provider Goal - PT LTG: PATIENT/CAREGIVER WILL DEMONSTRATE ADHERENCE TO FALL REDUCTION SELF-MANAGEMENT AND REDUCING FALL RISK FACTORS TO MINIMIZE FALL RISK BY END OF EPISODE . Goal Provider Goal - PT STG: PATIENT WILL DEMONSTRATE IMPROVED ABILITY TO PERFORM SIT TO/FROM STAND TRANSFERS TO REDUCE THE RISK OF SKIN BREAKDOWN AND REDUCE FALL RISK FROM CGA TO INDEPENDENT WITHIN 9 WEEKS Goal Provider Goal - PT LTG: PATIENT WILL DEMONSTRATE IMPROVED ABILITY TO PERFORM FLOOR RECOVERY TO DECREASE THE RISK OF SKIN BREAKDOWN AND ADVERSE HEALTH OUTCOMES FROM MAX ASSIST TO SUPERVISION WITHIN 9 WEEKS ... Goal Provider Goal - PT LTG: PATIENT WILL MAINTAIN OXYGEN SATURATION WITHIN PHYSICIAN ORDERED PARAMETERS THROUGHOUT EPISODE OF CARE. Goal Provider Goal - PT GOAL: PATIENT WILL DEMONSTRATE UNDERSTANDING OF PAIN MANAGEMENT TECHNIQUES EVIDENCED BY REDUCED PAIN IN LIW BACK BY 50% WITHIN 30 MINUTES OF ONSET WITHIN 4 WEEKS Goal Provider Goal - Goal Provider Goal - PT GOAL: PATIENT WILL NOT EXHIBIT SIGNS AND SYMPTOMS OF UTI. Encounters Start Date/Time End Date/Time Encounter Type Admission Type Attending [facility] Care Department Encounter ID Discharge Date Discharge Status Discharge Condition Discharge Reason Percent Goals Met 2024-10-23 00:00:00 2024-12-21 00:00:00 Outpatient NEW ADMISSION CHUCKIE BLOOM [facility] [id number]
== END 2024-12-16 15:52 | disposition home or self-care (01) ==
PROVIDERS: PCP Internal Medicine; Visit Provider Psychiatry & Neurology Neurology
DX: G30.1 Alzheimer's disease with late onset (principal); F02.B0 Dementia in other diseases classified elsewhere, moderate, without behavioral disturbance, psychotic disturbance, mood disturbance, and anxiety
CPT/HCPCS: 99214

== ENCOUNTER → 2024-12-16 15:18 | Outpatient (BNVA) | payer MEDICARE, SELFPAY | PROVIDERS: PCP Internal Medicine; Visit Provider Psychiatry & Neurology Neurology | DX: G30.1 Alzheimer's disease with late onset (principal); F02.B0 Dementia in other diseases classified elsewhere, moderate, without behavioral disturbance, psychotic disturbance, mood disturbance, and anxiety; Z71.3 Dietary counseling and surveillance; Z87.891 Personal history of nicotine dependence | CPT/HCPCS: 99212 ==